=== PATIENT | male | born 1955 | race African-American/Black ===

== ENCOUNTER 2016-09-24 08:00 | Outpatient (RCR) | payer OTHER | END 2016-09-24 14:00 | disposition home or self-care (01) | LOC: WSPT 08:00 | DX: M25.562 Pain in left knee (principal); M25.561 Pain in right knee | CPT/HCPCS: G8978-GP; G8979-GP; G8980-GP ==

== ENCOUNTER 2020-11-11 08:02 | Day surgery (SDC) | payer OTHER ==
[2020-11-11] VITALS (11 sets, daily range): BP systolic 106–137; BP diastolic 73–96; PULSE 55–74; TEMP 98.6
[~2020-11-11] VITALS: Ht 182.9 cm; Wt 121.9 kg
[2020-11-11 08:39] LABS: HEMATOCRIT 47.5 % (42.0-52.0); MEAN CELL VOLUME 79 fl (80.0-100.0); MEAN CORPUSCULAR HEMOGLOBIN 25 pg (27.0-31.0); MEAN CORPUSCULAR HGB CONC 32 g/dl (33.0-37.0); MEAN PLATELET VOLUME 11.3 fl (7.4-10.4); PLATELET COUNT 163 K/mm3 (130-400); RED BLOOD COUNT 6.05 M/mm3 (4.20-5.60); REDCELL DISTRIBUTION WIDTH-CV 14.8 % (11.5-14.5)
[2020-11-11 08:48] LABS: INR 1.1 (0.8-3.0); PROTHROMBIN TIME 12.8 SECONDS (9.7-12.8)
[2020-11-11 08:50] LABS: CALCIUM 9.4 mg/dL (8.4-10.2); CREATININE, serum 0.78 (0.66-1.25); PARTIAL THROMBOPLASTIN TIME 33.4 SECONDS (26.0-37.0); POTASSIUM 3.5 mmol/L (3.4-5.0)
[2020-11-11] MEDS ORDERED: NORVASC 10MG10 MG PO (08:52)
[2020-11-11] MEDS ORDERED: TRUSOPT OCUMETE10 ML OU (08:52)
[2020-11-11] MEDS ORDERED: ASPIRIN E.C. 8181 MG PO (08:52)
[2020-11-11] MEDS ORDERED: TUMERIC PO (08:53)
[2020-11-11] MEDS ORDERED: ALEVE 220MG220 MG PO (08:53)
[2020-11-11] MEDS ORDERED: ONE-A-DAY ESSE1 EACH PO (08:53)
[2020-11-11] MEDS ORDERED: HYGROTON50 MG PO (08:54)
[2020-11-11] MEDS ORDERED: REFRESH TEARS 330 ML OP (08:54)
--- NOTE | 2020-11-11 09:23 | NUR ---
Dr. Cline at bedside in [place] and states ok to proceed to cath with labs pending
[2020-11-11] MEDS ORDERED: LIPITOR 40MG TA40 MG PO (14:29)
[2020-11-11] MEDS ORDERED: FISH OIL 1000MG1 CAP PO (14:31)
--- NOTE | 2020-11-11 14:45 | NUR ---
DC instructions reviewed with pt, he expressed understanding. Air was removed from TR band in 2 ml increments with no bleeding or complications. Site dressed with bandaid and folded 2x2. IV DC'd with catheter intact, bleeding controlled at site. He has been steady on feet in room. He was removed from conveyor monitor and vitals equipment after 1325 VS were obtained so he could use restroom and start to get dressed while waiting for DC paperwork. Pt's has arrived at this time. He is taken to her car by wheelchair with all belongings.
== END 2020-11-11 16:04 | disposition home or self-care (01) ==
LOC: COL.CAR 08:02
PROVIDERS: Internal Medicine Cardiovascular Disease
DX: R94.39 Abnormal result of other cardiovascular function study (principal); R00.2 Palpitations; Z20.822 Contact with and (suspected) exposure to COVID-19
CPT/HCPCS: C1769; J1644; J2250; J3010